=== PATIENT | female | born 1955 | race Caucasian/White ===

== ENCOUNTER → 2018-02-04 | Day surgery (SDC) | payer MEDICAID ==
[~2018-02-04] VITALS: Ht 166.4 cm; Wt 92.8 kg
[~2018-02-04] MED LIST: *morphine SULFATE 8 MG/ML PERIprocedure ONLY ONE; ABAC1TAB3 PO; ACYC400T PO; ATOR10TA15 PO; CELE200C PO; CEPH-459 PO; CHLORHEXIDINE GLUCONATE 2 % 1 PACK (2 CLOTHS) TOPICAL PRN; CYCL5TAB PO; DEXTROSE 50% IN WATER 50 ML VIAL(D50) IV PRN; DEXTROSE 50% IN WATER 50 ML VIAL(D50) ONE; DO NOT ADM ANY ANTICOAGULANT DRUGS PRN; FAMOTIDINE 20 MG/2 ML VIAL ONE; GABA600T PO; GLIM4TAB PO; GLYCOPYRROLATE 1 MG/5 ML SYRINGE IV PUSH ONE; HYDR-3288 PO; IOHEXOL 350 MG/ML 50 ML BTL (for RAD DIAG) IVCONTRAST ONE; LACTATED RINGER'S 1000 ML INJ 1,000 ML IV ONE; LACTATED RINGER'S 1000 ML IV PRN; LANTUS2P SQ; LIDOCAINE HCL 1% PF 5 ML SYRINGE OTHER ONE; LORA2TAB7 PO; METOPROLOL TARTRATE 25 MG TAB PO PRN; MULT-65 PO; OMEP20TA93 PO; ONDANSETRON ODT 4 MG TAB PO PRN; PERC5TAB12 PO; PHENYLEPH/NS 1000 MCG/10 ML SYR IV ONE; POVIDONE IODINE 5% (ANTISEPSIS KIT) 4 APPLICATIONS EACH NARE PRN; PROP40TA3 PO; PROPOFOL 200 MG/20 ML AMP IV ONE; QUES4POW2 PO; SODIUM CHLORID 0.9% 500 ML IV PRN; TRAD5TAB PO; TRAZ100T10 PO; ZOFR4TAB PO; ceFAZolin 2 GM/DEX PREMIX 50 ML IV SCH; ePHEDrine/NS 25 MG/5 ML SYRINGE IV ONE; oxyCODONE/ACETAMINOPHEN 5 MG/325 MG TAB PO PRN
[2018-02-04 08:39] LABS: AUTOMATED NEUTROPHIL # 4.1 TH/MM3 (1.8-7.7); BASOPHIL % 0.5 % (0.0-2.0); EOSINOPHIL # 0.1 TH/MM3 (0-0.4); EOSINOPHIL % 1.6 % (0.0-4.0); HEMATOCRIT 41.3 % (35.0-46.0); HEMOGLOBIN 13.9 GM/DL (11.6-15.3); LYMPH % 32.7 % (9.0-44.0); LYMPHOCYTE # 2.3 TH/MM3 (1.0-4.8); MEAN CELL VOLUME 90.5 FL (80.0-100.0); MEAN CORPUSCULAR HEMOGLOBIN 30.4 PG (27.0-34.0); MEAN CORPUSCULAR HGB CONC 33.6 % (32.0-36.0); MEAN PLATELET VOLUME 8.5 FL (7.0-11.0); MONO % 8.2 % (0.0-8.0); MONOCYTE # 0.6 TH/MM3 (0-0.9); PLATELET COUNT 176 TH/MM3 (150-450); RED BLOOD COUNT 4.57 MIL/MM3 (4.00-5.30); RED CELL DISTRIBUTION WIDTH 15.2 % (11.6-17.2); WHITE BLOOD COUNT 7.1 TH/MM3 (4.0-11.0)
--- NOTE | 2018-02-04 09:00 | EKG ---
Date Performed: 02/04/2018 Time Performed: 08:10:24 PTAGE: 62 years EKG: Sinus rhythm NORMAL ECG NO PREVIOUS TRACING DOCTOR: Dinh Chacon Interpretating Date/Time 02/04/2018 08:58:43
--- NOTE | 2018-02-04 09:23 | RADRPT ---
EXAM DATE: 02/04/2018 8:11 AM EDT AGE/SEX: 62 years / Female INDICATIONS: Pre-op left side kidney stones. CLINICAL DATA: This is the patient's initial encounter. Patient reports that signs and symptoms have been present for 1 day and indicates a pain score of 5/10. MEDICAL/SURGICAL HISTORY: . Kidney stones. Cholecystectomy. COMPARISON: No prior exams available for comparison. FINDINGS: The abdominal bowel gas pattern is normal. No abnormal masses, or organomegaly is seen. The osseou s structures are unremarkable. A 15 mm left renal stone noted. This projects over the expected locati on of the renal hilum. Surgical clips within the right upper quadrant and bilateral hemipelvis. CONCLUSION: 15 mm left renal stone. Electronically signed by: Venkatesh Mccormack MD 02/04/2018 9:21 AM EDT
--- NOTE | 2018-02-04 12:13 | PD.OP ---
Operative Report Date of Surgery: Feb 04, 2018 Preoperative Diagnosis: (1) Renal calculus, left Postoperative Diagnosis: (1) Renal calculus, left Procedure: Cystoscopy, left retrograde pyelogram, left ureteral stent insertion and extracorporeal shockwave lithotripsy of left renal calculus Anesthesia: General Surgeon: Ramon Ng [employer] Clothes Police Officer(s): None Operation and Findings: Indication for procedures: Case of a pleasant 62-year-old female with 2 left- sided renal calculi measuring 1.5 cm and 7 mm respectively who presents today for cystoscopy, left retrograde pyelogram, left ureteral stent placement and shockwave lithotripsy of the larger left-sided calculus. Operative procedure in detail: Patient was brought to the operating room suite and placed supine on the OR table. She was then placed under general anesthesia. She was then repositioned in the dorsal lithotomy position and prepped and draped in normal sterile fashion. After appropriate timeout was undertaken, I proceeded with cystoscopic evaluation utilizing the rigid cystoscope with the 20 [place] sheath and the 30 lens. The right ureteral orifice was in normal anatomic position draining clear yellow urine in the left orifice was in a abnormal location further posterior and lateral than the expected site. There was sluggish drainage of urine noted through this orifice. A 6 [place] open-ended ureteral catheter was then utilized and a left retrograde pyelogram study performed to outline the left-sided collecting system. A sensor 0.035 wire was advanced through the open-ended catheter all the way into the left renal pelvis and the open-ended catheter was exchanged for a [place] 6 [place] by 24 cm double-J stent. The stent was placed on the both cystoscopic and fluoroscopic guidance without difficulty. After the stent was placed a 16 [place] Shi catheter was placed and connected to gravity drainage. The patient was then repositioned on the OR table and subsequently underwent shockwave lithotripsy of the 1.5 cm left renal calculus. The [employer] Piezolith 3000 device was utilized and the patient received a total of 3000 shocks with a maximum power level setting of 20. At the conclusion of the procedure the stone was still intact however markedly retail shift manager in intensity consistent with at least some degree of fragmentation. The patient tolerated the procedures without complications and was transferred to the PACU in satisfactory condition. Ramon Ng MD Feb 04, 2018 12:13
[2018-02-04 14:40] VITALS: BP 128/73; PULSE 71; RESP 18; TEMP 96.9; O2SAT 99
== END | disposition home or self-care (01) ==
LOC: HSDC 07:10
PROVIDERS: ATTEND Urology
DX: N20.0 Calculus of kidney (principal); Z01.810 Encounter for preprocedural cardiovascular examination; Z90.49 Acquired absence of other specified parts of digestive tract
CPT/HCPCS: 00873; 50590; 52332; 74018; 74420; 85025; 93005; C1769; J2270; J2370; J7120; Q9967